=== PATIENT | male | born 1950 | race Caucasian/White ===

== ENCOUNTER 2023-01-22 09:58 | Emergency (ER) | payer MEDICARE ==
[~2023-01-22] VITALS: Ht 177.8 cm; Wt 106.1 kg
[2023-01-22 13:08] LABS: BASOPHILS ABSOLUTE AUTO 0.04 K/mm3 (0.00-0.23); BASOPHILS PERCENT AUTO 1 % (0-2); EOSINOPHILS ABSOLUTE AUTO 0.04 K/mm3 (0.00-0.68); EOSINOPHILS PERCENT AUTO 1 % (0-6); Hematocrit 41.3 % (37.0-53.0); Hemoglobin 14.5 g/dL (13.5-17.5); IMMATURE GRAN ABSOLUTE AUTO 0.02 K/mm3 (0.00-0.10); IMMATURE GRAN PERCENT AUTO 0 % (0-1); LYMPHOCYTES ABSOLUTE AUTO 1.04 K/mm3 (0.84-5.20); LYMPHOCYTES PERCENT AUTO 12 % (21-46); MONOCYTES PERCENT AUTO 7 % (4-13); Mean Corpuscular HGB 30.1 pg (26.0-34.0); Mean Corpuscular HGB Conc 35.1 g/dL (31.5-36.5); Mean Corpuscular Volume 86 fL (80-100); Mean Platelet Volume 12.1 fL (9.1-12.4); NEUTROPHILS PERCENT AUTO 80 % (41-73); Platelet Count 124 K/mm3 (150-400); RDW Coefficient Variation 13.8 % (11.7-14.2); RDW Standard Deviation 42.8 fL (35.1-46.3); Red Blood Cell Count 4.81 M/mm3 (4.30-5.90); White Blood Cell Count 8.54 K/mm3 (4.00-11.30)
[2023-01-22 13:26] LABS: Albumin, Blood 3.9 g/dL (3.4-5.0); Albumin/Globulin Ratio 1.1 (0.8-1.8); Bilirubin, Total 0.6 mg/dL (0.1-1.0); Bun/Creatinine Ratio 17.9 (12.0-20.0); Calcium, Blood 9.3 mg/dL (8.5-10.1); Creatinine, Blood 1.12 mg/dL (0.60-1.20); Globulin, Blood 3.6 g/dL (2.2-4.0); Total Protein, Blood 7.5 g/dL (6.4-8.2)
[2023-01-22 13:30] VITALS: BP 115/70
== END 2023-01-22 14:45 | disposition home or self-care (01) ==
LOC: ER 09:58
PROVIDERS: Student in an Organized Health Care Education/Training Program
DX: R55 Syncope and collapse (principal)
CPT/HCPCS: 70450; 71046; 80053; 84484; 85025; 93005; 93010; 96360; 96361; 99285-25; J7030

== ENCOUNTER → 2023-03-02 | Outpatient (CLI) | payer MEDICARE | LOC: LAB SHORT 08:24 → PLD 08:24 | DX: D48.5 Neoplasm of uncertain behavior of skin (principal) | CPT/HCPCS: 88341; 88342 ==

== ENCOUNTER 2023-04-14 12:00 | Emergency (ER) | payer MEDICARE ==
[~2023-04-14] VITALS: Ht 175.3 cm; Wt 104.3 kg
[2023-04-14 16:10] LABS: BASOPHILS ABSOLUTE AUTO 0.03 K/mm3 (0.00-0.23); BASOPHILS PERCENT AUTO 1 % (0-2); EOSINOPHILS ABSOLUTE AUTO 0.09 K/mm3 (0.00-0.68); EOSINOPHILS PERCENT AUTO 2 % (0-6); Hematocrit 36.9 % (37.0-53.0); Hemoglobin 12.8 g/dL (13.5-17.5); IMMATURE GRAN ABSOLUTE AUTO 0.01 K/mm3 (0.00-0.10); IMMATURE GRAN PERCENT AUTO 0 % (0-1); LYMPHOCYTES ABSOLUTE AUTO 1.34 K/mm3 (0.84-5.20); LYMPHOCYTES PERCENT AUTO 23 % (21-46); MONOCYTES ABSOLUTE AUTO 0.53 K/mm3 (0.16-1.47); MONOCYTES PERCENT AUTO 9 % (4-13); Mean Corpuscular HGB 29.6 pg (26.0-34.0); Mean Corpuscular HGB Conc 34.7 g/dL (31.5-36.5); Mean Corpuscular Volume 85 fL (80-100); Mean Platelet Volume 12.1 fL (9.1-12.4); NEUTROPHILS ABSOLUTE AUTO 3.76 K/mm3 (1.96-9.15); NEUTROPHILS PERCENT AUTO 65 % (41-73); Platelet Count 137 K/mm3 (150-400); RDW Coefficient Variation 12.9 % (11.7-14.2); RDW Standard Deviation 40.1 fL (35.1-46.3); Red Blood Cell Count 4.32 M/mm3 (4.30-5.90); White Blood Cell Count 5.76 K/mm3 (4.00-11.30)
[2023-04-14 16:16] LABS: Albumin, Blood 3.3 g/dL (3.4-5.0); Bilirubin, Total 0.5 mg/dL (0.1-1.0); Bun/Creatinine Ratio 12.4 (12.0-20.0); Calcium, Blood 8.5 mg/dL (8.5-10.1); Creatinine, Blood 1.21 mg/dL (0.60-1.20); Globulin, Blood 3.4 g/dL (2.2-4.0); Total Protein, Blood 6.7 g/dL (6.4-8.2)
[2023-04-14 17:15] VITALS: BP 129/81
== END 2023-04-14 17:56 | disposition home or self-care (01) ==
LOC: ER 12:00
PROVIDERS: Student in an Organized Health Care Education/Training Program
DX: R47.01 Aphasia (principal)
CPT/HCPCS: 70450; 70496; 80053; 85025; 93005; 93010; 99284-25; Q9967

== ENCOUNTER 2023-05-22 08:20 | Emergency (ER) | payer MEDICARE ==
[~2023-05-22] VITALS: Ht 177.8 cm; Wt 103.4 kg
[2023-05-22] MEDS ORDERED: LISI20 PO (08:48)
[2023-05-22] MEDS ORDERED: Crestor20 MG PO (08:48)
[2023-05-22] MEDS ORDERED: ASPI81CH PO (08:49)
[2023-05-22] MEDS ORDERED: FINA5 PO (08:49)
[2023-05-22] MEDS ORDERED: TAMS.4ER PO (08:49)
[2023-05-22 09:00] LABS: BASOPHILS ABSOLUTE AUTO 0.04 K/mm3 (0.00-0.23); BASOPHILS PERCENT AUTO 1 % (0-2); EOSINOPHILS ABSOLUTE AUTO 0.06 K/mm3 (0.00-0.68); EOSINOPHILS PERCENT AUTO 1 % (0-6); Hematocrit 36.9 % (37.0-53.0); Hemoglobin 13.3 g/dL (13.5-17.5); IMMATURE GRAN ABSOLUTE AUTO 0.01 K/mm3 (0.00-0.10); IMMATURE GRAN PERCENT AUTO 0 % (0-1); LYMPHOCYTES PERCENT AUTO 19 % (21-46); MONOCYTES PERCENT AUTO 16 % (4-13); Mean Corpuscular HGB 30.2 pg (26.0-34.0); Mean Corpuscular Volume 84 fL (80-100); Mean Platelet Volume 11.8 fL (9.1-12.4); NEUTROPHILS ABSOLUTE AUTO 3.92 K/mm3 (1.96-9.15); NEUTROPHILS PERCENT AUTO 63 % (41-73); Platelet Count 120 K/mm3 (150-400); RDW Coefficient Variation 12.2 % (11.7-14.2); RDW Standard Deviation 37.2 fL (35.1-46.3); Red Blood Cell Count 4.41 M/mm3 (4.30-5.90); White Blood Cell Count 6.23 K/mm3 (4.00-11.30)
[2023-05-22 09:27] LABS: Albumin, Blood 3.1 g/dL (3.4-5.0); Albumin/Globulin Ratio 0.9 (0.8-1.8); Bilirubin, Total 0.7 mg/dL (0.1-1.0); Bun/Creatinine Ratio 10.9 (12.0-20.0); Calcium, Blood 8.8 mg/dL (8.5-10.1); Creatinine, Blood 1.19 mg/dL (0.60-1.20); Globulin, Blood 3.5 g/dL (2.2-4.0); Potassium, Blood 4.1 mmol/L (3.5-5.5); Total Protein, Blood 6.6 g/dL (6.4-8.2)
[2023-05-22] MEDS ORDERED: ONDA4ODT MM (11:38)
[2023-05-22] MEDS ORDERED: FAMO20 PO (11:38)
[2023-05-22 11:57] VITALS: BP 120/74
== END 2023-05-22 11:58 | disposition home or self-care (01) ==
LOC: ER 08:20
PROVIDERS: Student in an Organized Health Care Education/Training Program
DX: R55 Syncope and collapse (principal); E86.0 Dehydration; K21.9 Gastro-esophageal reflux disease without esophagitis; I10 Essential (primary) hypertension; Z79.899 Other long term (current) drug therapy
CPT/HCPCS: 80053; 83735; 83880; 84484; 85025; 93005; 93010; 96374; 99284-25; J2405; J7030

== ENCOUNTER 2023-05-28 07:46 | Emergency (ER) | payer MEDICARE ==
[~2023-05-28] VITALS: Ht 175.3 cm; Wt 103.0 kg
[~2023-05-28 07:46] MED LIST: ASPI81CH PO; Crestor20 MG PO; FAMO20 PO; FINA5 PO; LISI20 PO; ONDA4ODT MM; TAMS.4ER PO
[2023-05-28 09:27] LABS: BASOPHILS ABSOLUTE AUTO 0.02 K/mm3 (0.00-0.23); BASOPHILS PERCENT AUTO 0 % (0-2); EOSINOPHILS ABSOLUTE AUTO 0.04 K/mm3 (0.00-0.68); EOSINOPHILS PERCENT AUTO 1 % (0-6); Hematocrit 38.7 % (37.0-53.0); Hemoglobin 13.6 g/dL (13.5-17.5); IMMATURE GRAN ABSOLUTE AUTO 0.04 K/mm3 (0.00-0.10); IMMATURE GRAN PERCENT AUTO 1 % (0-1); LYMPHOCYTES ABSOLUTE AUTO 0.69 K/mm3 (0.84-5.20); LYMPHOCYTES PERCENT AUTO 10 % (21-46); MONOCYTES ABSOLUTE AUTO 0.96 K/mm3 (0.16-1.47); MONOCYTES PERCENT AUTO 14 % (4-13); Mean Corpuscular HGB 29.3 pg (26.0-34.0); Mean Corpuscular HGB Conc 35.1 g/dL (31.5-36.5); Mean Corpuscular Volume 83 fL (80-100); NEUTROPHILS ABSOLUTE AUTO 5.28 K/mm3 (1.96-9.15); NEUTROPHILS PERCENT AUTO 75 % (41-73); Platelet Count 138 K/mm3 (150-400); RDW Coefficient Variation 12.3 % (11.7-14.2); RDW Standard Deviation 37.2 fL (35.1-46.3); Red Blood Cell Count 4.64 M/mm3 (4.30-5.90); White Blood Cell Count 7.03 K/mm3 (4.00-11.30)
[2023-05-28 09:47] LABS: Albumin/Globulin Ratio 0.8 (0.8-1.8); Bun/Creatinine Ratio 15.7 (12.0-20.0); Calcium, Blood 8.6 mg/dL (8.5-10.1); Creatinine, Blood 1.08 mg/dL (0.60-1.20); Globulin, Blood 3.9 g/dL (2.2-4.0); Potassium, Blood 4.3 mmol/L (3.5-5.5); Total Protein, Blood 6.9 g/dL (6.4-8.2)
[2023-05-28 12:22] VITALS: BP 128/98
== END 2023-05-28 12:44 | disposition home or self-care (01) ==
LOC: ER 07:46
PROVIDERS: Emergency Medicine
DX: R53.1 Weakness (principal); E87.1 Hypo-osmolality and hyponatremia; C43.9 Malignant melanoma of skin, unspecified; Z79.899 Other long term (current) drug therapy
CPT/HCPCS: 36415; 80053; 83605; 85025; 93005; 93010; 99285-25; J7030

== ENCOUNTER 2023-06-09 13:54 | Day surgery (SDC) | payer MEDICARE ==
[2023-06-09 14:52] VITALS: BP 93/59
== END 2023-06-09 15:52 | disposition home or self-care (01) ==
LOC: ATC 13:54
DX: C43.9 Malignant melanoma of skin, unspecified (principal); D41.00 Neoplasm of uncertain behavior of unspecified kidney
CPT/HCPCS: 96360; J7030

== ENCOUNTER 2023-06-10 02:45 | Day surgery (SDC) | payer MEDICARE ==
[2023-06-10 14:00] VITALS: BP 91/59
== END 2023-06-10 15:13 | disposition home or self-care (01) ==
LOC: ATC 02:45
DX: C43.9 Malignant melanoma of skin, unspecified (principal); D41.00 Neoplasm of uncertain behavior of unspecified kidney
CPT/HCPCS: 96360; J7030

== ENCOUNTER 2023-06-12 14:50 | Inpatient (IN) | payer MEDICARE ==
[~2023-06-12] VITALS: Ht 177.8 cm; Wt 100.8 kg
[2023-06-12 16:49] LABS: Magnesium, Blood 1.8 mg/dL (1.6-2.4)
[2023-06-12 17:12] LABS: Albumin, Blood 2.7 g/dL (3.4-5.0); Albumin/Globulin Ratio 0.9 (0.8-1.8); Bilirubin, Total 0.6 mg/dL (0.1-1.0); Creatinine, Blood 1.25 mg/dL (0.60-1.20); Globulin, Blood 2.9 g/dL (2.2-4.0); Potassium, Blood 4.7 mmol/L (3.5-5.5); Total Protein, Blood 5.6 g/dL (6.4-8.2)
[2023-06-12 18:32] VITALS: BP 121/99
[2023-06-12] MEDS ORDERED: ALLO300 PO (19:26)
[2023-06-12 19:33] VITALS: BP 121/66
--- NOTE | 2023-06-12 22:37 | NUR ---
NURSE NOTE DR NOTIFIED OF 124 [facility]. NO NEW ORDERS CURRENTLY.
--- NOTE | 2023-06-13 03:51 | NUR ---
SHIFT SUMMARY PATIENT IS ALERT AND ORIENTED X3. PATIENT HAS HAD NO ACUTE EVENTS THIS SHIFT. VITAL SIGNS REVIEWED. PATIENT IS ADMITTED FOR HYPONATREMIA, SODIUM LAB LEVELS ARE SLOWING INCREASING TO [address] AWARE OF INCREASING LOW SODIUM LAB VALUES, NO NEW ORDERS. PATIENT IS A ONE PERSON ASSIST TO BATHROOM. NO EVENTS ON TELE. BED IN LOCKED AND LOWEST POSITION. CALL LIGHT IN PLACE. WILL MONITOR UNTIL SHIFT CHANGE.
[2023-06-13 04:01] VITALS: BP 125/72
[2023-06-13 04:56] LABS: BASOPHILS ABSOLUTE AUTO 0.04 K/mm3 (0.00-0.23); BASOPHILS PERCENT AUTO 1 % (0-2); EOSINOPHILS ABSOLUTE AUTO 0.07 K/mm3 (0.00-0.68); EOSINOPHILS PERCENT AUTO 2 % (0-6); Hematocrit 30.2 % (37.0-53.0); Hemoglobin 10.7 g/dL (13.5-17.5); Mean Corpuscular HGB Conc 35.4 g/dL (31.5-36.5); Mean Corpuscular Volume 82 fL (80-100); Mean Platelet Volume 12.3 fL (9.1-12.4); Platelet Count 97 K/mm3 (150-400); RDW Coefficient Variation 13.2 % (11.7-14.2); RDW Standard Deviation 40.1 fL (35.1-46.3); Red Blood Cell Count 3.69 M/mm3 (4.30-5.90); White Blood Cell Count 3.97 K/mm3 (4.00-11.30)
[2023-06-13 04:59] LABS: IMMATURE GRAN ABSOLUTE AUTO 0.01 K/mm3 (0.00-0.10); IMMATURE GRAN PERCENT AUTO 0 % (0-1); LYMPHOCYTES ABSOLUTE AUTO 1.03 K/mm3 (0.84-5.20); LYMPHOCYTES PERCENT AUTO 26 % (21-46); MONOCYTES ABSOLUTE AUTO 0.38 K/mm3 (0.16-1.47); MONOCYTES PERCENT AUTO 10 % (4-13); NEUTROPHILS ABSOLUTE AUTO 2.44 K/mm3 (1.96-9.15); NEUTROPHILS PERCENT AUTO 61 % (41-73)
[2023-06-13 05:42] LABS: Bun/Creatinine Ratio 12.9 (12.0-20.0); Calcium, Blood 7.7 mg/dL (8.5-10.1); Creatinine, Blood 1.32 mg/dL (0.60-1.20); Potassium, Blood 4.4 mmol/L (3.5-5.5)
[2023-06-13 07:20] VITALS: BP 109/64
--- NOTE | 2023-06-13 08:21 | NUR ---
Pt sitting up in a chair, a/ox4, pleasant and cooperative with care, follows commands well, denies pain, states he's comfortable, lungs are clear t/o, resp even and unlabored, reports an occ dry nonproductive cough, on r/a, hrr, tele in place running sr per monitor, see strip, no edema noted, ppp+2, cap refill <3 sec, vs stable, afebrile, piv to lac, site is clear and patent, btx4, abd flat soft nontender, voids without diff, skin c/w/d, maew, lelo, call light in reach.
[2023-06-13 15:04] VITALS: BP 106/60
--- NOTE | 2023-06-13 18:03 | NUR ---
pt had an uneventful day, infusing ns @100mls/hr, placed new 20g iv to rfa with good blood return, pt tolerated well, has been in to visit. no further changes this shift. call light in reach.
[2023-06-13 19:16] VITALS: BP 114/71
[2023-06-14 03:54] VITALS: BP 109/69
[2023-06-14 05:33] LABS: Hematocrit 28.1 % (37.0-53.0); Hemoglobin 10.2 g/dL (13.5-17.5); Mean Corpuscular HGB Conc 36.3 g/dL (31.5-36.5); Mean Corpuscular Volume 80 fL (80-100); Platelet Count 100 K/mm3 (150-400); RDW Coefficient Variation 13.4 % (11.7-14.2); RDW Standard Deviation 38.5 fL (35.1-46.3); Red Blood Cell Count 3.52 M/mm3 (4.30-5.90); White Blood Cell Count 3.96 K/mm3 (4.00-11.30)
[2023-06-14 05:47] LABS: Mean Platelet Volume 13.3 fL (9.1-12.4)
--- NOTE | 2023-06-14 06:12 | NUR ---
PATIENT IS ALERT AND ORIENTED, ONN ROOM AIR WITH TELE SINUS RHYTHM AT 116. WITH PIV LINE ON LEFT AC ON SALINE LOCKED AND ON RIGHT HAND WITH ONGOING IV FLUIDS OFF NSS AT 100 ML/HR. ON SBA USING A FWW. ON FREE WATER REST. AT 2L. NEEDS ATTENDED. CALL LIGHT WITHIN PATIENT'S REACH. WILL CONTINUE TO MONITOR.
[2023-06-14 06:25] LABS: Albumin, Blood 2.5 g/dL (3.4-5.0); Albumin/Globulin Ratio 0.9 (0.8-1.8); Bilirubin, Total 0.6 mg/dL (0.1-1.0); Bun/Creatinine Ratio 14.8 (12.0-20.0); Calcium, Blood 7.5 mg/dL (8.5-10.1); Creatinine, Blood 1.08 mg/dL (0.60-1.20); Globulin, Blood 2.7 g/dL (2.2-4.0); Potassium, Blood 4.1 mmol/L (3.5-5.5); Total Protein, Blood 5.2 g/dL (6.4-8.2)
[2023-06-14 07:21] VITALS: BP 112/71
[2023-06-14 10:01] LABS: BAND PERCENT MAN 8 % (0-8); BASOPHILS ABSOLUTE MAN 0.03 K/mm3 (0.00-0.23); BASOPHILS PERCENT MAN 1 % (0-2); EOSINOPHILS ABSOLUTE MAN 0.03 K/mm3 (0.00-0.68); EOSINOPHILS PERCENT MAN 1 % (0-6); LYMPHOCYTES % ATYPICAL MANUAL 3 % (0-0); LYMPHOCYTES PERCENT MAN 30 % (21-46); MONOCYTES ABSOLUTE MAN 0.39 K/mm3 (0.16-1.47); MONOCYTES PERCENT MAN 10 % (4-13); NEUTROPHILS ABSOLUTE MAN 2.17 K/mm3 (1.96-9.15); SEG NEUTROPHILS PERCENT MAN 47 % (41-73); TOTAL CELLS COUNTED 100
[2023-06-14 15:28] VITALS: BP 118/70
[2023-06-14] MEDS ORDERED: ASPI81CH PO (18:09)
[2023-06-14] MEDS ORDERED: NICO21TP TOP (18:09)
[2023-06-14] MEDS ORDERED: PROPRANOLOL HCL80 MG PO (18:10)
--- NOTE | 2023-06-14 18:15 | NUR ---
SHIFT SUMMARY AND DISCHARGE PATIENT DISCHARGED HOME. PATIENT ALERT BUT FORGETFUL AND SLIGHTLY CONFUSED. STATES THAT THIS STARTED WHEN PATIENT STARTED NEW CHEMO TX. PATIENT ABLE TO AMBULATE WITH STAND BY ASSIST. PATIENT NOTED TO HAVE RASH ALL OVER BODY. STATED THAT THE PATIENT HAS HAD THIS RASH FOR A WHILE AND ONCOLOGIST AWARE. DISCHARGE INSTRUCTIONS REVIEWED WITH AND PATIENT. IVS DC'D PRIOR TO DISCHARGE. BELONGINGS SENT HOME WITH PATIENT. PATIENT TRANSPORTED OUT VIA WHEELCHAIR.
== END 2023-06-14 17:15 | disposition home health service (06) | DRG 641 ==
LOC: ER 14:50 → MEDS 14:51
PROVIDERS: Student in an Organized Health Care Education/Training Program; ADMIT Internal Medicine
DX: E87.1 Hypo-osmolality and hyponatremia (principal); C78.7 Secondary malignant neoplasm of liver and intrahepatic bile duct; D61.818 Other pancytopenia; N40.0 Benign prostatic hyperplasia without lower urinary tract symptoms; I12.9 Hypertensive chronic kidney disease with stage 1 through stage 4 chronic kidney disease, or unspecified chronic kidney disease; E78.5 Hyperlipidemia, unspecified; N18.9 Chronic kidney disease, unspecified; C43.9 Malignant melanoma of skin, unspecified; Z79.82 Long term (current) use of aspirin; D41.00 Neoplasm of uncertain behavior of unspecified kidney
CPT/HCPCS: 36415; 80048; 80053; 82533; 83615; 83735; 83880; 83930; 83935; 84295; 84300; 84443; 84484; 84550; 85025; 93005; 93010; 96360; 96372; 97162; 97165; 97530; 97535; 99285-25; A9270; G0378; J1644; J7030

== ENCOUNTER → 2023-06-15 | Outpatient (CLI) | payer MEDICARE ==
[~2023-06-15] MED LIST changes: +ALLO300 PO; +NICO21TP TOP; +PROPRANOLOL HCL80 MG PO
== END | disposition home or self-care (01) ==
LOC: LAB 18:38 → LAB SHORT 18:38
DX: R33.9 Retention of urine, unspecified (principal)
CPT/HCPCS: 87086

== ENCOUNTER 2023-09-25 10:23 | Inpatient (IN) | payer MEDICARE ==
[~2023-09-25] VITALS: Ht 177.8 cm; Wt 94.3 kg
[~2023-09-25 10:23] MED LIST changes: +BRAFTOVI75 MG PO; +LORA10ER PO; +MEKTOVI15 MG PO; +OXYB5 PO; +UREAPRO454 GM PO; +VITAMIN D5000 UNIT PO
[2023-09-25 11:25] LABS: BASOPHILS ABSOLUTE AUTO 0.01 K/mm3 (0.00-0.23); BASOPHILS PERCENT AUTO 0 % (0-2); EOSINOPHILS ABSOLUTE AUTO 0.02 K/mm3 (0.00-0.68); EOSINOPHILS PERCENT AUTO 0 % (0-6); Hemoglobin 10.6 g/dL (13.5-17.5); IMMATURE GRAN PERCENT AUTO 1 % (0-1); LYMPHOCYTES ABSOLUTE AUTO 0.59 K/mm3 (0.84-5.20); LYMPHOCYTES PERCENT AUTO 4 % (21-46); MONOCYTES ABSOLUTE AUTO 1.22 K/mm3 (0.16-1.47); MONOCYTES PERCENT AUTO 8 % (4-13); Mean Corpuscular HGB 27.3 pg (26.0-34.0); Mean Corpuscular HGB Conc 33.1 g/dL (31.5-36.5); Mean Corpuscular Volume 83 fL (80-100); Mean Platelet Volume 10.6 fL (9.1-12.4); NEUTROPHILS ABSOLUTE AUTO 13.37 K/mm3 (1.96-9.15); NEUTROPHILS PERCENT AUTO 87 % (41-73); Platelet Count 251 K/mm3 (150-400); RDW Coefficient Variation 15.2 % (11.7-14.2); RDW Standard Deviation 46.3 fL (35.1-46.3); Red Blood Cell Count 3.88 M/mm3 (4.30-5.90); White Blood Cell Count 15.31 K/mm3 (4.00-11.30)
[2023-09-25 11:40] LABS: Albumin, Blood 2.1 g/dL (3.4-5.0); Albumin/Globulin Ratio 0.5 (0.8-1.8); Bilirubin, Total 0.6 mg/dL (0.1-1.0); Bun/Creatinine Ratio 22.5 (12.0-20.0); Calcium, Blood 8.6 mg/dL (8.5-10.1); Creatinine, Blood 1.11 mg/dL (0.60-1.20); Globulin, Blood 4.4 g/dL (2.2-4.0); Potassium, Blood 3.8 mmol/L (3.5-5.5); Total Protein, Blood 6.5 g/dL (6.4-8.2)
[2023-09-25] MEDS ORDERED: Piperacillin/Tazobactam Sod 4.5 GM in NS 100 ML IV ONE (13:05)
[2023-09-25] MEDS ORDERED: CefTRIAXone Sodium 1,000 MG in NS 100 ML IV ONE (13:05)
[2023-09-25 13:09] LABS: Source, Urine Foley catheter
[2023-09-25 13:15] LABS: Appearance, Urine Hazy (Clear); Bilirubin, Urine Neg (Neg); Blood, Urine 2+ (Neg); Color, Urine Yellow (P-Yellow); Glucose Qualitative, Urine Neg (Neg); Ketones, Urine 1+ (Neg); Leukocyte Esterase, Urine 1+ (Neg); Nitrite, Urine Neg (Neg); Protein, Urine 3+ (Neg); Specific Gravity, Urine 1.015 (1.003-1.022); Urobilinogen, Urine 1+ (Normal)
[2023-09-25 13:51] LABS: Bacteria Many /hpf; Hyaline Casts 0-2 /lpf (0-2); Mucus Light (0-Heavy); Squamous Epithelial Cells Rare /hpf (Few)
[2023-09-25 13:52] LABS: Granular Casts 0-2 /lpf (0)
[2023-09-25] MEDS ORDERED: Ondansetron 4 MG TAB PO PRN (15:05)
[2023-09-25] MEDS ORDERED: Acetaminophen 325 MG TABLET PO PRN (15:05)
[2023-09-25] MEDS ORDERED: CefTRIAXone Sodium 1,000 MG in NS 100 ML IV SCH (16:03)
[2023-09-25 16:39] VITALS: BP 118/66
[2023-09-25] MEDS ORDERED: NS 250 ML IV PRN (16:40)
[2023-09-25] MEDS ORDERED: Cefpodoxime Pr100 MG PO (17:04)
--- NOTE | 2023-09-25 18:08 | NUR ---
SHIFT SUMMARY: ASSUMED CARE OF PATIENT UPON HIS ARRIVAL FROM ER AT 1630. WAS ABLE TO TRANSFER WITH SBA FROM [facility] TO BED. A&O X 3, HAVING TROUBLE WITH MONTH/DATE, HAS TROUBLE WORD FINDING AT TIMES. HAS CHRONIC INDWELLING URINARY CATHETER WHICH WAS NOT CHANGED IN ER PRIOR TO ADMISSION, PENDING URINE CULTURE WAS TAKEN FROM PREVIOUS CATHETER. SKIN IS INTACT. DENIED POSSESSION OF ANY INCENDIARY DEVICES, DOES NOT USE SUPPLEMENTAL OXYGEN. EDUCATED REGARDING USE OF CALL LIGHT, FALL PRECAUTIONS, RIGHTS AND RESPONSIBILITES, UNIT ROUTINE. HOME MED REC IS COMPLETE.
[2023-09-25 18:33] LABS: Source, Urine Foley catheter
[2023-09-25 18:38] LABS: Appearance, Urine Clear (Clear); Bilirubin, Urine Neg (Neg); Blood, Urine 5+ (Neg); Color, Urine Yellow (P-Yellow); Glucose Qualitative, Urine Neg (Neg); Ketones, Urine Neg (Neg); Leukocyte Esterase, Urine 1+ (Neg); Nitrite, Urine Neg (Neg); Protein, Urine 2+ (Neg); Urobilinogen, Urine NORM (Normal)
[2023-09-25 19:22] VITALS: BP 119/80
[2023-09-25 20:05] LABS: Bacteria Many /hpf; Squamous Epithelial Cells Rare /hpf (Few)
[2023-09-26] VITALS (8 sets, daily range): BP systolic 86–124; BP diastolic 53–76
--- NOTE | 2023-09-26 03:44 | NUR ---
SHIFT SUMMARY 73 YR M ADMITTED ON 09/25/23. FULL CODE. NO ACUTE CHANGES THIS SHIFT. NO MEDS SCHEDULED FOR THIS SHIFT. PT HAS SLEPT FOR MOAT OF THE NIGHT. MEEK IS PATENT AND DRAINING TO GRAVITY. BED IN LOW POSITION AND CALL LIGHT IN REACH. WILL CONTINUE TO MONITOR.
[2023-09-26 04:57] LABS: BASOPHILS ABSOLUTE AUTO 0.03 K/mm3 (0.00-0.23); BASOPHILS PERCENT AUTO 0 % (0-2); EOSINOPHILS ABSOLUTE AUTO 0.03 K/mm3 (0.00-0.68); EOSINOPHILS PERCENT AUTO 0 % (0-6); Hematocrit 29.2 % (37.0-53.0); IMMATURE GRAN ABSOLUTE AUTO 0.12 K/mm3 (0.00-0.10); IMMATURE GRAN PERCENT AUTO 1 % (0-1); LYMPHOCYTES PERCENT AUTO 5 % (21-46); MONOCYTES ABSOLUTE AUTO 1.35 K/mm3 (0.16-1.47); MONOCYTES PERCENT AUTO 10 % (4-13); Mean Corpuscular HGB 27.8 pg (26.0-34.0); Mean Corpuscular HGB Conc 34.2 g/dL (31.5-36.5); Mean Corpuscular Volume 81 fL (80-100); Mean Platelet Volume 10.1 fL (9.1-12.4); NEUTROPHILS ABSOLUTE AUTO 11.63 K/mm3 (1.96-9.15); NEUTROPHILS PERCENT AUTO 84 % (41-73); Platelet Count 215 K/mm3 (150-400); RDW Standard Deviation 44.7 fL (35.1-46.3); White Blood Cell Count 13.86 K/mm3 (4.00-11.30)
[2023-09-26 05:48] LABS: Albumin, Blood 1.9 g/dL (3.4-5.0); Albumin/Globulin Ratio 0.5 (0.8-1.8); Bilirubin, Total 0.5 mg/dL (0.1-1.0); Bun/Creatinine Ratio 18.9 (12.0-20.0); Calcium, Blood 8.3 mg/dL (8.5-10.1); Creatinine, Blood 1.11 mg/dL (0.60-1.20); Globulin, Blood 3.9 g/dL (2.2-4.0); Magnesium, Blood 2.2 mg/dL (1.6-2.4); Potassium, Blood 3.7 mmol/L (3.5-5.5); Total Protein, Blood 5.8 g/dL (6.4-8.2)
[2023-09-26] MEDS ORDERED: Finasteride 5 MG Tab PO SCH ×2 (09:00→21:00)
[2023-09-26] MEDS ORDERED: Tamsulosin HCl 0.4 MG Cap PO SCH ×2 (09:00→21:00)
[2023-09-26] MEDS ORDERED: UREA 15 GM POWD.PACK PO SCH (09:00)
[2023-09-26] MEDS ORDERED: Enoxaparin 40 MG/0.4 ML SYR SC SCH (09:00)
[2023-09-26] MEDS ORDERED: Sodium Chloride 1 GM TAB PO SCH (09:00)
[2023-09-26] MEDS ORDERED: Rosuvastatin Calcium 10 MG Tab PO SCH (09:00)
[2023-09-26] MEDS ORDERED: Loratadine 10 MG Tab PO SCH (09:00)
--- NOTE | 2023-09-26 11:14 | NUR ---
PATIENT EXPERIENCED FALL WHILE IN THE BR. HE REQUESTED ASSISTANCE TO USE BR, GIVEN FWW TO USE AND ASSISTED WITH SBA. EDUCATED TO USE WALL CORD WHEN FINISHED. WHEN THIS AUTHOR CHECKED ON HIM A FEW MINUTES LATER, HE STATED HE WAS FINE, JUST WASHING UP AT THE SINK. THIS AUTHOR LEFT THE ROOM FOR A MOMENT AND THEN PT FELL, WAS FOUND LYING ON HIS BACK. NO LOC, NO CHANGE IN ORIENTATION. STATED HE WAS NOT INJURED, FELL WHEN HE TURNED AROUND TO EXIT. VS MEASURED, WAS FOUND TO BE HYPOTENSIVE. AFTER A FEW MINUTES, HE WAS HELPED TO HIS FEET AND ASSISTED BTB. DR. HUGGINS NOTIFIED, ORTHOSTATIC VS COMPLETED. BED ALARM ON, CALL LIGHT AND BELONGINGS IN REACH. SPOUSE NOTIFIED WHEN SHE ARRIVED TO VISIT. BENEFITS OFFICER NOTIFIED ADN POST FALL HUDDLE COMPLETED.
--- NOTE | 2023-09-26 18:17 | NUR ---
SHIFT SUMMARY: NO ACUTE EVENTS SINCE GLF THIS MORNING, BUT IS ENDORSING SACRAL DISCOMFORT AND A BRUISE IS EVIDENT; COVERED WITH FOAM DRESSING FOR PROTECTION AND COMFORT. WAS POSITIVE FOR ORTHOSTASIS AFTER FALL. CHANGED TAMSULOSIN AND FINASTERIDE TO BE GIVEN AT HS PER DR. HUGGINS, WHICH MAY HELP WITH BP. EDEN DRAINING YELLOW URINE, ENCOURAGING PO FLUID INTAKE. APPETITE IS POOR. WORKED WITH PT/OT.
[2023-09-26] MEDS ORDERED: NS 1,000 ML IV SCH (19:00)
[2023-09-27 03:41] VITALS: BP 114/69
--- NOTE | 2023-09-27 05:45 | NUR ---
PT HAD A GOOD NIGHT, A& O X4 BUT FORGETFUL AT TIMES, VITALS ARE STABLE, EDEN CATHETER IN TACT AND DRAINING WELL. NO FURTHER CONCERNS AT THIS TIME.
[2023-09-27 07:00] VITALS: BP 123/79
[2023-09-27 10:10] LABS: BASOPHILS ABSOLUTE AUTO 0.03 K/mm3 (0.00-0.23); BASOPHILS PERCENT AUTO 0 % (0-2); EOSINOPHILS ABSOLUTE AUTO 0.04 K/mm3 (0.00-0.68); EOSINOPHILS PERCENT AUTO 0 % (0-6); Hematocrit 30.6 % (37.0-53.0); Hemoglobin 10.3 g/dL (13.5-17.5); IMMATURE GRAN ABSOLUTE AUTO 0.09 K/mm3 (0.00-0.10); IMMATURE GRAN PERCENT AUTO 1 % (0-1); LYMPHOCYTES ABSOLUTE AUTO 0.57 K/mm3 (0.84-5.20); LYMPHOCYTES PERCENT AUTO 5 % (21-46); MONOCYTES ABSOLUTE AUTO 0.86 K/mm3 (0.16-1.47); MONOCYTES PERCENT AUTO 7 % (4-13); Mean Corpuscular HGB 27.5 pg (26.0-34.0); Mean Corpuscular HGB Conc 33.7 g/dL (31.5-36.5); Mean Corpuscular Volume 82 fL (80-100); Mean Platelet Volume 10.5 fL (9.1-12.4); NEUTROPHILS ABSOLUTE AUTO 10.19 K/mm3 (1.96-9.15); NEUTROPHILS PERCENT AUTO 87 % (41-73); Platelet Count 247 K/mm3 (150-400); RDW Standard Deviation 45.2 fL (35.1-46.3); Red Blood Cell Count 3.75 M/mm3 (4.30-5.90); White Blood Cell Count 11.78 K/mm3 (4.00-11.30)
[2023-09-27 10:29] LABS: Calcium, Blood 8.3 mg/dL (8.5-10.1); Creatinine, Blood 0.91 mg/dL (0.60-1.20); Potassium, Blood 3.6 mmol/L (3.5-5.5)
[2023-09-27 16:23] VITALS: BP 129/72
--- NOTE | 2023-09-27 18:44 | NUR ---
SUMMARY- PT A/O X 3-4, USES CALL LIGHT. SLIGHTLY FORGETFUL- GOT UP TO CHAIR FOR LUNCH TODAY, SBA WITH WALKER, [id number] ACTIVITY WELL, BECOMING STRONGER. HAS LITTLE APPETITES BUT TOLERATED ABOUT 50% MEALS AND ENSURE. CHRONIC EDEN FOR RETENTION. VSS. WILL REPORT TO YASMANY RN
[2023-09-27 19:33] VITALS: BP 139/64
[2023-09-28 04:17] VITALS: BP 118/79
--- NOTE | 2023-09-28 04:21 | NUR ---
SHIFT SUMMARY NO ACUTE EVENTS OVERNIGHT. PT SLEPT THROUGHOUT THE NIGHT. PT'S BREATHING WAS EVEN AND UNLABORED. FRESH WATER PROVIDED AT THE START OF SHIFT. DURING HIS ASSESSMENT HE WAS A&O X 4 AND DENIED ANY PAIN.
--- NOTE | 2023-09-28 05:52 | NUR ---
CTA/GEM CARVER I HAVE READ GEM CARVER'S DOCUMENTATION. SHIFT SUMMARY IN GEM CARVER NOTES
[2023-09-28 07:28] VITALS: BP 121/73
[2023-09-28 10:55] LABS: Bun/Creatinine Ratio 36.5 (12.0-20.0); Calcium, Blood 8.5 mg/dL (8.5-10.1); Creatinine, Blood 0.93 mg/dL (0.60-1.20); Potassium, Blood 3.8 mmol/L (3.5-5.5)
[2023-09-28 11:02] LABS: BASOPHILS ABSOLUTE AUTO 0.03 K/mm3 (0.00-0.23); BASOPHILS PERCENT AUTO 0 % (0-2); EOSINOPHILS ABSOLUTE AUTO 0.06 K/mm3 (0.00-0.68); EOSINOPHILS PERCENT AUTO 1 % (0-6); Hematocrit 30.8 % (37.0-53.0); Hemoglobin 10.4 g/dL (13.5-17.5); IMMATURE GRAN ABSOLUTE AUTO 0.09 K/mm3 (0.00-0.10); IMMATURE GRAN PERCENT AUTO 1 % (0-1); LYMPHOCYTES ABSOLUTE AUTO 0.58 K/mm3 (0.84-5.20); LYMPHOCYTES PERCENT AUTO 5 % (21-46); MONOCYTES ABSOLUTE AUTO 1.01 K/mm3 (0.16-1.47); MONOCYTES PERCENT AUTO 9 % (4-13); Mean Corpuscular HGB 27.8 pg (26.0-34.0); Mean Corpuscular HGB Conc 33.8 g/dL (31.5-36.5); Mean Corpuscular Volume 82 fL (80-100); Mean Platelet Volume 10.9 fL (9.1-12.4); NEUTROPHILS ABSOLUTE AUTO 9.17 K/mm3 (1.96-9.15); NEUTROPHILS PERCENT AUTO 84 % (41-73); Platelet Count 269 K/mm3 (150-400); RDW Coefficient Variation 14.8 % (11.7-14.2); RDW Standard Deviation 44.8 fL (35.1-46.3); Red Blood Cell Count 3.74 M/mm3 (4.30-5.90); White Blood Cell Count 10.94 K/mm3 (4.00-11.30)
[2023-09-28] MEDS ORDERED: SODCHL1 PO (11:04)
[2023-09-28 12:13] LABS: SARS-Cov-2 (COVID-19) PCR, MMC NEGATIVE (NEGATIVE)
--- NOTE | 2023-09-28 15:03 | NUR ---
PT DC'D TO [facility], TRANSPORT HERE 1445 FOR OSIEL MONTANO, PT AMBULATED BED TO [facility]. CALLED REPORT TO NANCY AT [facility] 1455. STATES PLAN TO TAKE BELONGINGS AND MEET PT AT FACILITY.
== END 2023-09-28 14:47 | DRG 644 ==
LOC: ER 10:23 → MEDS 15:03
PROVIDERS: Emergency Medicine; Physician Assistant; ADMIT Internal Medicine
PROC: 0T9B70Z Drainage of Bladder with Drainage Device, Via Natural or Artificial Opening (ICD-10-PCS; principal; 2023-09-25)
DX: E22.2 Syndrome of inappropriate secretion of antidiuretic hormone (principal); C78.7 Secondary malignant neoplasm of liver and intrahepatic bile duct; C79.31 Secondary malignant neoplasm of brain; C43.9 Malignant melanoma of skin, unspecified; E88.09 Other disorders of plasma-protein metabolism, not elsewhere classified; I95.1 Orthostatic hypotension; N18.2 Chronic kidney disease, stage 2 (mild); N40.1 Benign prostatic hyperplasia with lower urinary tract symptoms; R33.8 Other retention of urine; I12.9 Hypertensive chronic kidney disease with stage 1 through stage 4 chronic kidney disease, or unspecified chronic kidney disease; E78.5 Hyperlipidemia, unspecified; D63.1 Anemia in chronic kidney disease; R74.01 Elevation of levels of liver transaminase levels; Z98.890 Other specified postprocedural states; Z79.899 Other long term (current) drug therapy; E66.3 Overweight; K59.00 Constipation, unspecified; Z68.29 Body mass index [BMI] 29.0-29.9, adult
CPT/HCPCS: 36415; 71046; 74177; 80048; 80053; 81001; 83605; 83735; 85025; 87040; 87086; 96365; 97110; 97116; 97161; 97166; 97530; 99285-25; A9270; J0696; J1650; J2543; J7030; J7050; Q9967; U0002